=== PATIENT | female | born 1980 | race African-American/Black ===

== ENCOUNTER 2022-07-09 11:08 | Emergency (ER) | payer OTHER ==
[2022-07-09] MEDS ORDERED: Ondansetron ODT 4 MG TAB ONE (12:35)
[2022-07-09] MEDS ORDERED: Dexamethasone 10 MG/ML VIAL ONE (12:35)
[2022-07-09] MEDS ORDERED: Bicillin LA 1.2 MILLION UNITS/2 ML SYRINGE IM SCH (12:45)
== END 2022-07-09 13:08 | disposition home or self-care (01) ==
LOC: CSHERS 11:08
DX: J02.0 Streptococcal pharyngitis (principal); Z20.822 Contact with and (suspected) exposure to COVID-19; F17.210 Nicotine dependence, cigarettes, uncomplicated
CPT/HCPCS: 87430; 87804; 96372; 99283; J0561; J1100; Q0162; U0003; U0005